=== PATIENT | male | born 1985 | race Two or more races ===

== ENCOUNTER 2023-03-21 19:12 | Emergency (ER) | payer SELFPAY ==
[~2023-03-21] VITALS: Ht 167.6 cm; Wt 90.0 kg
[2023-03-21 19:13] VITALS: BP 145/94; PULSE 85; RESP 16; TEMP 99.6; O2SAT 99
== END 2023-03-21 21:28 | disposition home or self-care (01) ==
LOC: ER 19:12
DX: S01.81XA Laceration without foreign body of other part of head, initial encounter (principal); S06.89AA Other specified intracranial injury with loss of consciousness status unknown, initial encounter; F10.129 Alcohol abuse with intoxication, unspecified; V00.141A Fall from scooter (nonmotorized), initial encounter; Y93.89 Activity, other specified; Y92.89 Other specified places as the place of occurrence of the external cause; Y99.8 Other external cause status; Y90.0 Blood alcohol level of less than 20 mg/100 ml
CPT/HCPCS: 12011; 70450